=== PATIENT | female | born 1990 | race Caucasian/White ===

== ENCOUNTER 2019-05-05 21:15 | Emergency (ER) | payer MEDICAID ==
[2019-05-05 22:09] LABS: EOS % 0.3 % (1.0-5.0); HEMOGLOBIN 11.3 g/dL (12.5-16.0); MEAN CELL VOLUME 90 fl (78-100); MEAN CORPUSCULAR HEMOGLOBIN 30 pg (27-31); MEAN CORPUSCULAR HGB CONC 33 g/dL (33-37); MEAN PLATELET VOLUME 9.4 fl (7.4-10.4); MONO # 0.5 (0.20-0.80); NEU # 5.1 (1.40-6.50); PLATELET COUNT 192 K/mm3 (130-400); RED BLOOD COUNT 3.77 M/mm3 (4.10-5.30); RED CELL DISTRIBUTION WIDTH 12.7 % (11.5-14.5); WHITE BLOOD COUNT 6.6 K/mm3 (4.8-10.8)
[2019-05-05] MEDS ORDERED: VENLAFAXINE H37.5 M4 PO (22:15)
[2019-05-05 22:21] LABS: POTASSIUM 3.4 mmol/L (3.5-5.1)
[2019-05-05 22:22] LABS: CALCIUM 8.8 mg/dL (8.3-10.5)
[2019-05-05 22:23] LABS: TOTAL PROTEIN 7.1 g/dL (6.4-8.3)
[2019-05-05 22:25] LABS: TOTAL BILIRUBIN 0.6 mg/dL (0.2-1.2)
[2019-05-05 22:26] LABS: URINE APPEARANCE CLOUDY; URINE COLOR YELLOW; URINE PROTEIN(semi-quant) 1+ mg/dL (NEGATIVE)
[2019-05-05 22:27] LABS: URINE BILIRUBIN NEGATIVE (NEGATIVE); URINE BLOOD 50 ery/uL (NEGATIVE); URINE GLUCOSE NEGATIVE (NEGATIVE); URINE KETONE 1+ (NEGATIVE); URINE LEUKOCYTE ESTERASE 2+ (NEGATIVE); URINE NITRATE POSITIVE (NEGATIVE); URINE UROBILINOGEN NORMAL (NORMAL)
[2019-05-05 22:28] LABS: URINE WBC >50 /hpf (0-3)
[2019-05-05] MEDS ORDERED: CIPRO500 M1 PO (22:56)
[2019-05-05] MEDS ORDERED: ZOFRAN ODT4 MG PO (22:56)
[2019-05-06 01:16] VITALS: BP 95/55
== END 2019-05-06 01:16 | disposition home or self-care (01) ==
LOC: ED 21:15
PROVIDERS: Physician Assistant
DX: N12 Tubulo-interstitial nephritis, not specified as acute or chronic (principal); N39.0 Urinary tract infection, site not specified; F32.9 Major depressive disorder, single episode, unspecified; F41.9 Anxiety disorder, unspecified; Z88.0 Allergy status to penicillin; Z90.89 Acquired absence of other organs
CPT/HCPCS: J0744; J1885; J2405; J7030